=== PATIENT | male | born 1960 | race African-American/Black ===

== ENCOUNTER 2023-05-17 08:30 | Outpatient (CLI) | payer MEDICAID | END 2023-05-17 08:45 | disposition home or self-care (01) | LOC: LAB.N 08:30 | PROVIDERS: ATTEND Physician Assistant Medical | DX: M17.12 Unilateral primary osteoarthritis, left knee (principal) | CPT/HCPCS: 36415; 84550 ==

== ENCOUNTER 2023-05-17 10:05 | Outpatient (CLI) | payer MEDICAID ==
--- NOTE | 2023-05-17 16:38 | XRAY Report ---
PROCEDURE: Knee 3 View LT INDICATIONS: OSTEOARTHRITIS, KNEE ,LEFT, MILD TECHNIQUE: 3 views of the left knee(s) were acquired. COMPARISON: None. FINDINGS: Bones: No fractures or dislocations. No suspicious bony lesions. Question bipartite patella. Severe tricompartmental knee joint degeneration, most pronounced in the medial femorotibial compartment Soft tissues: Trace knee joint effusion. No suspicious soft tissue calcifications or masses. Suspec t intra-articular bodies in the suprapatellar knee joint. IMPRESSION: 1. Severe osteoarthritic changes. 2. Question an intra-articular bodies in the suprapatellar knee joint. Reviewed by: Sawyer Packer MD on 05/17/2023 4:37 PM PDT Approved by: Sawyer Packer MD on 05/17/2023 4:37 PM PDT Station ID: [id number]
== END 2023-05-17 10:06 | disposition home or self-care (01) ==
LOC: DI 10:05
PROVIDERS: ATTEND Physician Assistant Medical
DX: M17.12 Unilateral primary osteoarthritis, left knee (principal)
CPT/HCPCS: 36415; 84550